=== PATIENT | male | born 1965 | race Caucasian/White ===

== ENCOUNTER → 2016-04-04 | Outpatient (CLI) | payer BC ==
[~2016-04-04] MED LIST: ACET-1256 PO; ATOR-24 PO; CLOP1TAB15 PO; FLM4 PO; GABA1CAP PO; MULT-506 PO; OPTIRAY 320 IV PRN; PSYL55.43; SIMV40TA2 PO; VTME100 PO; viagra PO
--- NOTE | 2016-04-04 07:59 | DIAGNOSTIC IMAGING REPORT ---
CT ANGIOGRAPHY OF THE CHEST WITH CONTRAST CT DOSE: 1642.90 mGy.cm CLINICAL HISTORY: Distal embolization with embolic disease of toes. TECHNIQUE: Helical axial images of the chest were obtained during arterial phase following intravenous injection 116 cc of Optiray 320 IV. Sagittal and coronal reconstructions were reviewed as well as maximal intensity projections on an independent 3-D workstation. Please note that the CTA of the abdomen and pelvis with lower extremity runoff will be reported separately. COMPARISON STUDY: None. FINDINGS: No enlarged axillary, mediastinal or hilar lymph nodes are present. The heart is mildly enlarged. There is no pericardial effusion. The caliber of the thoracic aorta is at the upper limits of normal. There is mild plaque of the aortic arch. No dissection is present. There is no aneurysmal dilatation. Central airways are patent. Mosaic attenuation is noted. Note is made of a 1 cm nodule within the anterior segment of the right upper lobe shown on image 125 of 1439. This nodule has slightly irregular margins. There may be associated air trapping. A 5 mm right upper lobe nodule is noted on image 74. Note is made of a 5 m right middle lobe nodule on image 161. No consolidation to suggest pneumonia is present. Linear opacities suggest atelectasis. Bony thorax is unremarkable. The abdomen and pelvis with runoff will be reported separately. IMPRESSION: 1. Mild atherosclerotic plaque of the aortic arch. No thoracic aortic aneurysm. No thoracic aortic dissection. 2. 1 cm right upper lobe nodule with slightly irregular margins. This nodule is indeterminate and a neoplasm cannot be excluded on this exam. A follow-up pulmonary consultation and PET/CT are recommended. 3. Several additional nodules which are low suspicion but indeterminate. 4. Mild cardiomegaly. 5. Mosaic attenuation within the lungs which may reflect air trapping. Electronically signed by: Jaxson Benton M.D. 04/04/2016 7:57 AM Dictated Date/Time: 04/04/2016 7:39 AM
--- NOTE | 2016-04-04 07:59 | DIAGNOSTIC IMAGING REPORT ---
CT ANGIO AA CHIRAG LE RUNOFF CT DOSE: CLINICAL HISTORY: Lower extremity arterial thrombosis. TECHNIQUE: CT angiography of the abdomen pelvis and both lower extremities were performed in a dynamic helical fashion during intravenous administration of 116 cc of Optiray 320. MIP imaging was performed. COMPARISON STUDY: CT scan of the abdomen pelvis dated 05/25/2011 FINDINGS: Imaged the lung bases reveal subtle groundglass attenuation with a mosaic distribution. This may indicate air trapping. There is a 6 mm hypervascular focus within the right lobe of the liver laterally. There is a 7 mm hypodensity within the left lobe anteriorly possibly representing a cyst. No splenic masses are visualized in this arterial phase study. No peripancreatic masses are visualized this arterial phase study. No adrenal masses are visualized. No renal masses are visualized this arterial phase study. There is mild infiltration the central mesentery with minimally prominent mesenteric lymph nodes. The appendix appears normal. There is no acute diverticulitis. There are no transition zones indicate bowel obstruction. There is no evidence of celiac or superior mesenteric artery stenosis. There is no evidence of renal artery stenosis.. There are 2 right renal arteries. The inferior mesenteric artery is patent. There is no evidence of abdominal aortic aneurysm. There are mild to moderate atheromatous changes within the abdominal aorta. On the left, there is a 50% diameter stenosis of the left common iliac artery. There is no evidence of hemodynamically significant stenosis of the left external iliac artery. There are mild atheromatous changes in the left common femoral artery. There are mild to moderate atheromatous changes within the distal superficial femoral artery with multifocal stenoses approaching 50%. There is a 40% diameter stenosis of the left popliteal artery. There is three-vessel runoff to the ankle. On the right, there is no evidence of hemodynamically significant stenosis within the right common or external iliac. There is mild atheromatous narrowing involving the right common femoral artery. There are mild multifocal stenoses involving the right superficial femoral artery. There is a 30% diameter stenosis involving the popliteal artery. There is three-vessel runoff to the level the ankle. IMPRESSION: 1. Mild to moderate atheromatous changes as described above. There are no focal stenoses exceeding 50%. There is three-vessel runoff bilaterally 2. No evidence of superior mesenteric, celiac, or renal artery stenosis 3. 6 mm hypervascular focus in the right lobe of the liver laterally, and 7 mm hypodensity within the left lobe of the liver anteriorly 4. Mild infiltration of the central mesentery with associated minimally prominent lymph nodes Electronically signed by: Gray Castro M.D. 04/04/2016 7:57 AM Dictated Date/Time: 04/04/2016 7:42 AM
== END | disposition home or self-care (01) ==
LOC: C.CTS 06:38
PROVIDERS: ATTEND Surgery Vascular Surgery
DX: I74.3 Embolism and thrombosis of arteries of the lower extremities (principal); R91.1 Solitary pulmonary nodule; R91.8 Other nonspecific abnormal finding of lung field

== ENCOUNTER → 2016-04-18 | Day surgery (SDC) | payer BC, OTHER ==
[~2016-04-18] VITALS: Ht 170.2 cm; Wt 74.5 kg
[2016-04-18] VITALS (9 sets, daily range): BP systolic 99–127; BP diastolic 71–87; PULSE 74–81; TEMP 36.5–36.7; O2SAT 92–95; Ht 170.2 cm; Wt 74.5 kg
[~2016-04-18] MED LIST changes: +CEFAZOLIN 1000MG/55 ML D5W 55 ML IV SCH; +CLOPIDOGREL BISULFATE 300 MG TAB PO STA; +FENTANYL CITRATE INJ 50 MCG/1 ML 2 ML VIAL IV ONE; +FENTANYL CITRATE INJ 50 MCG/1 ML 2 ML VIAL ONE; +HEPARIN SOD (PORCINE) 1000 UNIT/ML 10 ML VIAL IV ONE; +HEPARIN SOD (PORCINE) 1000 UNIT/ML 10 ML VIAL ONE; +IODIXANOL (VISIPAQUE) 270 MG/ML 150ML XX ONE; +LIDOCAINE HCL 1% 20 ML VIAL INFIL ONE; +MIDAZOLAM HCL 1 MG/ML 2ML VIAL IV ONE; +MIDAZOLAM HCL 1 MG/ML 2ML VIAL ONE; +NSS 1000ML IV SCH; +ONDANSETRON INJ 2 MG/ML 2 ML VIAL IV PRN; -OPTIRAY 320 IV PRN; +OXYCODONE/ACETAMINOPHEN 5-325 TAB PO PRN; +PATIENT'S HEIGHT AND/OR WEIGHT NEEDED SCH
--- NOTE | 2016-04-18 06:46 | History and Physical ---
History & Physical CC: Bilateral embolization to feet HPI: Mr. Worthy states that his 4th toe became purple and increasingly painful approximately 3months ago. He states that prior to that, he had been having some burning sensation in his bilateral toes, but that after undergoing a massage therapy that burning sensation went away in all the toes except this fourth one and then that toe became discolored. He states that it waxes and wanes between a deep purple and reddish color. He states that the skin is beginning to peel off in the dorsal aspect. He states id it is tender to touch and if under hot water in the shower. The patient does state having some discomfort in his bilateral calves when ambulating. He states that it comes on after walking a considerable distance though and that it is not severe enough to cause him to stop ambulation. He denies any rest pain or nonhealing wounds or ulcers. Mr. Worthy had a CTA which showed a mild amount of plaque in the distal aorta , but he does have a bilateral iliac artery stenoses at their origins. The left side is at least 50-60% with what appears to be a soft plaque. The right side has an angle at the origin, so it makes it difficult to evaluate the stenosis, but I believe it is probably over 70%. There is poststenotic dilatation of the common iliac artery on that side He denies other complaints at this time including headaches, fevers, chills, chest pain, shortness of breath, abdominal pain, nausea, vomiting, diarrhea, constipation, dysuria, hematuria or other complaints. His allergies include no known allergies. Home medications are reconciled in the chart and include Aleve, multivitamin, simvastatin, tamsulosin and Viagra. The patient's past medical history is positive for depression, hypercholesterolemia, erectile dysfunction, osteopenia and a history of tobacco use. The patient's surgical history is positive for colonoscopy, shave biopsy of skin , surgery on his left middle finger and dental extractions. His family history is essentially negative per patient. His social history is positive for tobacco use. The patient states that he smokes at least 1/2 to 1 pack of cigarettes per day. He denies any alcohol or drug use. His review of systems is negative for fatigue, fevers, sweats, weight loss, exercise intolerance, abnormal moles, vision changes or photophobia, ear pain, sinus problems or sore throat, cough, shortness of breath, hemoptysis or wheezing, chest pain, palpitations, edema or syncope, abdominal pain, nausea, vomiting, diarrhea, constipation, muscle weakness, headaches, dizziness, numbness or seizures. PHYSICAL EXAMINATION: His vital signs today were as follows, a blood pressure of 110/72 in the right arm, 106/72 in the left; heart rate of 89; oxygenation 96 % on room air. Constitutional, in general, the patient is a healthy-appearing for age, well-nourished, well-developed middle-aged male in no acute distress. He ambulates without assistance and is active, alert and oriented x4 with normal recent and remote memory. His head is normocephalic and atraumatic. His eyes are EOMI. His ENMT exam demonstrates no hearing loss, rhinorrhea or pharyngeal erythema. His neck is supple, nontender with midline trachea without masses or crepitus. Lung exam demonstrates no dyspnea. They are decreased somewhat throughout, but are clear bilaterally. His cardiovascular exam demonstrates a nondisplaced apical impulse with a regular rate and rhythm without murmurs, lifts, heaves, thrills or gallops. His peripheral pulses are full and equal in all extremities unless otherwise noted, specifically they are normal in his carotid, brachial and radial pulses. The patient's left femoral is +2. His right femoral is +1. His left lower extremity DP and PT pulses are +2. His right lower extremity distal pulses are +2. He has brisk capillary refill to all toes in his right foot. The patient's left foot demonstrate brisk capillary refill to all toes except his fourth toe which has delayed capillary refill of 8 seconds. The patient demonstrates no bruits in his carotid, abdominal or femoral area. His abdomen is soft and nontender with normoactive bowel sounds in all 4 quadrants without guarding or rebound. There is no flank or CVA tenderness and I am unable to appreciate any pulsatile mass. His musculoskeletal exam demonstrates normal tone and strength for age. His bilateral upper extremities demonstrate no cyanosis, edema, clubbing, varicosities or ulcers. The patient's left fourth toe demonstrates violaceous/ red discoloration consistent with ischemia. There is some mild topical exfoliative dermatitis. The toe is tender to palpation. There are no open areas and there is no odor. There is worsening of the fourth toe and discoloration of the third through fifth toes of the left foot, also new discoloration of the right great and fifth toe. The right fifth toe and left fourth and fifth toes are discolored. There is good perfusion around the escharred area. The patient's right lower extremity demonstrates no cyanosis, edema, clubbing, varicosities or ulcers. Neurologically, the patient has grossly intact cranial nerves and grossly intact sensation. 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 Plan : Patient is admitted for arteriography and iliac stenting. I have discussed the risks options and benefits of the procedure with the patient. The patient understands the risks options and benefits and agrees to the procedure.
[2016-04-18 07:55] LABS: CREATININE 0.83 mg/dl (0.60-1.40)
--- NOTE | 2016-04-18 09:18 | Procedure Note ---
Pre-Mod Sedation Assessment General Date of Moderate Sedation: Apr 18, 2016. Vital Signs: Vital Signs Past 12 Hours Date Time Temp Pulse Resp B/P Pulse Ox O2 Delivery O2 Flow Rate FiO2 04/18/16 07:06 36.7 81 16 127/85 94 Room Air Pre-Sedation Airway Assessment Oral Cavity: WNL Smoking Status: Former Smoker Mallampati Classification: Class I ASA Classification: Class II Notes The planned sedation has been discussed with the patient and consent obtained. I have identified the patient, determined the appropriateness of sedation and have assessed the patient immediately prior to the procedure. All medicine(s) and interventions are by my order.
--- NOTE | 2016-04-18 09:18 | History & Physical Bridge Note ---
H&P Re-Evaluation Bridge Note: I have examined the patient, reviewed the History & Physical and in the interval since the performance of the History & Physical I have noted the following changes of clinical significance: No changes noted
--- NOTE | 2016-04-18 10:27 | Procedure Note ---
Post-Moderate Sedation Plan General Date of Moderate Sedation Apr 18, 2016. Vital Signs: Vital Signs Past 12 Hours Date Time Temp Pulse Resp B/P Pulse Ox O2 Delivery O2 Flow Rate FiO2 04/18/16 07:06 36.7 81 16 127/85 94 Room Air Review - Discharge Plan Post Moderate Sedation Plan: On clinical assessment, the patient appears to have tolerated the conscious sedation without complications. Patient is recovering as anticipated. Patient will continue to be monitored by nursing and may be discharged when conscious sedation discharge criteria are met.
--- NOTE | 2016-04-18 10:28 | [facility] Post Operative Brief Note ---
Immediate Operative Summary Operative Date Apr 18, 2016. Pre-Operative Diagnosis Embolic disease of the left fourth toe Post-Operative Diagnosis Same Procedure(s) Performed Bilateral Common Iliac Stenting Percutaneous Transluminal Angioplasty of Bilateral Iliac Arteries Mechanical Closure of Bilateral Femoral Arteries Moderate Conscious Sedation ([id number]) Surgeon Jm Nurse Aide Surgeon(s) None Estimated Blood Loss 10 Findings no residual stenosis Specimens None Anesthesia Local with moderate conscious sedation Complication(s) None Disposition
--- NOTE | 2016-04-18 10:30 | Discharge Instructions ---
Discharge Instructions Visit Reason for Visit: Bilateral Iliac Stenosis Discharge Discharge Diagnosis / Problem: Bilateral lower extremity embolization with bilateral common iliac plaque Discharge Goals Goal(s): Therapeutic intervention Activity Recommendations Activity Limitations: per Instructions/Follow-up section Anesthesia . Post Anesthesia Instructions: If you have had General Anesthesia or IV Sedation: * Do not drive today. * Resume driving when surgeon permits. * Do not make important decisions or sign legal documents today. * Call surgeon for: 1. Temperature elevations greater than 101 degrees F. 2. Uncontrollable pain. 3. Excessive bleeding. 4. Persistent nausea and vomiting. 5. Medication intolerance (nausea, vomiting or rash). * For nausea and vomiting use only clear liquids such as: tea, soda, bouillon until nausea subsides, then gradually increase diet as tolerated. * If you have any concerns or questions, call your surgeon's office. If physician is unavailable and it is an emergency, call 911 or go to the nearest emergency room. . Instructions / Follow-Up Instructions / Follow-Up Call [phone] to schedule a follow up appointment if one not already scheduled. SPECIAL CARE INSTRUCTIONS: Medications: * Continue to take your medications as directed. If you have been given a prescription for Plavix, please fill it immediately and take as directed. Incision Care: * Your puncture site may have some bruising and minor swelling for about one week. * You will have a small dressing covering your puncture site. You may remove the dressing after 24 hours and shower. You may let the warm soapy water run over it, but be sure to dry the puncture site well and keep it dry. * DO NOT IMMERSE THE INCISION IN A TUB/POOL/etc. UNTIL HEALED. * Puncture sites should be kept covered with a band-aid until it begins to heal. Restrictions: * Depending on whether you leg or arm was punctured to access the arteries, you will be required to lay flat, hold your arm still, or both, for about 4 hours after the procedure to prevent bleeding. * Limit your activity for the first 48 hours. You may walk and go up and down steps. Avoid excessive bending or movement at the puncture site. Possible Complications: * Excessive Swelling - after blood flow is improved you may notice increased swelling in the lower legs. This is a normal response. This usually depends on the amount of blockages in the leg, how long they have been there prior to your procedure and how much blood flow was restored. Elevating your legs will help to improve this. Please notify our office ([phone] ) if the swelling does not go away after lying in bed overnight. * Infection/Drainage/Bleeding - Drainage or bleeding from the puncture site should be minimal. If you have excessive bleeding or drainage, call our office ([phone]) right away. * Pain - You may experience some mild pain or soreness at your puncture site. If your pain does not improve, please contact our office ([phone]). Call your doctor and seek emergent treatment if you develop: * Temperature above 101 degrees * Any fever or chills * Any redness or purulent drainage from the puncture site * Any new dusky/blue colored toes or feet with coolness or sharp or aching pain. SKIN IRRITATION: * You may experience some redness and/or swelling in the area where radiation was administered. If any skin irritation occurs, please contact your family physician. FOLLOW UP VISIT: Keep any scheduled doctor appointments. Diet Recommendations Recommended Home Diet: resume previous diet Procedures Procedures Performed: Bilateral Common Iliac Stenting Percutaneous Transluminal Angioplasty of Bilateral Iliac Arteries Mechanical Closure of Bilateral Femoral Arteries Moderate Conscious Sedation ([id number]) Pending Studies Studies pending at discharge: no Medical Emergencies . Who to Call and When: Medical Emergencies: If at any time you feel your situation is an emergency, please call 911 immediately. . Non-Emergent Contact Non-Emergency issues call your: Surgeon . . "Provider Documentation" section prepared by Ahmet Oneal.
--- NOTE | 2016-04-18 11:11 | DIAGNOSTIC IMAGING REPORT ---
DATE OF PROCEDURE: 04/18/2016 PREOPERATIVE DIAGNOSIS: Bilateral iliac artery stenosis with ulceration, bilateral lower extremity embolization. POSTOPERATIVE DIAGNOSIS: Same. PROCEDURE: 1. Bilateral common iliac artery stenting. 2. Bilateral closure of the femoral arteries. 3. Moderate conscious sedation, 49 minutes. SURGEON: Dr. Oneal. ANESTHETIC: Local with moderate conscious sedation. PROCEDURE INDICATIONS: The patient is a 50-year-old gentleman who embolized his left foot and subsequent to that embolized to his right foot. We did do a CTA which showed irregularity of the left common iliac artery and the significant narrowing with poststenotic dilatation and irregular plaque of the right common iliac artery. Bilateral stenting was recommended. The patient understood the risks, options and benefits and agreed to go ahead with this procedure. The patient was taken to the angiogram suite and placed in supine position. After the groins were prepped and draped in a sterile manner, local anesthetic was administered. A percutaneous puncture was made of the right common femoral artery. A 5-Georgian sheath was inserted. An 0.035 wire was then passed up through the iliac into the aorta. Pigtail was inserted over the wire. An aortogram was performed which showed severe narrowing of the right common iliac artery origin with poststenotic dilatation, significant irregularity of the proximal right common iliac artery and good runoff to the external iliacs down to the femorals. Puncture on this side was anterior in the common femoral artery. It was decided to stent both arteries. Measurements were obtained. We would have use a 16 x 40 stent on the right, which would be a Wallstent and an iCAST of 9 x 38 on the left. I chose to put the iCAST on the left due to the amount of irregularity of the plaque. The left groin was then anesthetized and the common femoral artery punctured. The 7-Georgian sheath was inserted. The wire was then passed up into the abdominal aorta. The right side sheath was then pulled. Perclose device was used to preclose the right femoral artery, and an 11-Georgian sheath was inserted. The 16 x 40 Wallstent was then inserted. It was passed up to the distal aorta. This was done on the right side. A 9 x 38 iCAST passed up the left. We started to deploy the Wallstent first. I wanted to deploy the iCAST with the balloon in the Wallstent. After we deployed the Wallstent on the left, it did slip down through the stenosis. We then placed an 18 x 40 balloon slightly higher into the aorta. This was then deployed. It sat nicely in the distal aorta and then that slipped down. A 14 balloon was then inserted into the Wallstents. The 9 x 38 iCAST was then opened. Both balloons were inflated simultaneously to avoid crimping the other stent. Once this was done, the 14 balloon was pulled down into the common iliac artery distally, and the distal end was ballooned. Both balloons were then removed. The pigtail was then reinserted. Completion angio done at that time showed the iliacs to be widely patent. Irregular areas are both covered, especially on the left side. At that point the left sheath was pulled over a wire. The Star closure device was used to close the puncture in the left groin. This was done without difficulty. Hemostasis was noted. On the right side, the sheath was pulled over a wire. Perclose device was then tied down. No bleeding was noted. The wire was pulled and the Perclose was cinched down the rest of the way. Adequate hemostasis was noted at both groins. The patient left the angio suite in good condition and tolerated the procedure well.
== END | disposition home or self-care (01) ==
LOC: C.ACU 06:34
PROVIDERS: ATTEND Surgery Vascular Surgery
DX: I70.239 Atherosclerosis of native arteries of right leg with ulceration of unspecified site (principal); I70.248 Atherosclerosis of native arteries of left leg with ulceration of other part of lower leg; F17.210 Nicotine dependence, cigarettes, uncomplicated; E78.00 Pure hypercholesterolemia, unspecified; F32.9 Major depressive disorder, single episode, unspecified; M79.671 Pain in right foot; M79.672 Pain in left foot

== ENCOUNTER → 2016-04-21 | Outpatient (CLI) | payer BC ==
[~2016-04-21] MED LIST changes: -CEFAZOLIN 1000MG/55 ML D5W 55 ML IV SCH; -CLOPIDOGREL BISULFATE 300 MG TAB PO STA; -FENTANYL CITRATE INJ 50 MCG/1 ML 2 ML VIAL IV ONE; -FENTANYL CITRATE INJ 50 MCG/1 ML 2 ML VIAL ONE; -HEPARIN SOD (PORCINE) 1000 UNIT/ML 10 ML VIAL IV ONE; -HEPARIN SOD (PORCINE) 1000 UNIT/ML 10 ML VIAL ONE; -IODIXANOL (VISIPAQUE) 270 MG/ML 150ML XX ONE; -LIDOCAINE HCL 1% 20 ML VIAL INFIL ONE; -MIDAZOLAM HCL 1 MG/ML 2ML VIAL IV ONE; -MIDAZOLAM HCL 1 MG/ML 2ML VIAL ONE; -NSS 1000ML IV SCH; -ONDANSETRON INJ 2 MG/ML 2 ML VIAL IV PRN; -OXYCODONE/ACETAMINOPHEN 5-325 TAB PO PRN; -PATIENT'S HEIGHT AND/OR WEIGHT NEEDED SCH
[2016-04-21 14:38] LABS: BASO % 0.2 %; BASO ABS # 0.02 K/uL (0-0.2); COMPLETE YES; EOS % 3.1 %; HEMATOCRIT 45.9 % (42-52); IG% 0.2 %; LYMPH % 18.1 %; LYMPH ABS # 2.39 K/uL (1.2-3.4); MEAN CELL VOLUME 87.1 fL (80-100); MEAN CORPUSCULAR HEMOGLOBIN 29.6 pg (25-34); MEAN PLATELET VOLUME 10.2 fL (7.4-10.4); MONO % 8.6 %; NEUT % 69.8 %; PLATELET COUNT 596 K/uL (130-400); RED BLOOD COUNT 5.27 M/uL (4.7-6.1); WHITE BLOOD COUNT 13.24 K/uL (4.8-10.8)
[2016-04-21 15:01] LABS: BLOOD UREA NITROGEN 14 mg/dl (7-18); BUN/CREATININE RATIO 16.8 (10-20); CALCIUM 9.6 mg/dl (8.5-10.1); CARBON DIOXIDE 28 mmol/L (21-32); CHLORIDE 102 mmol/L (98-107); CREATININE 0.81 mg/dl (0.60-1.40); GLUCOSE 85 mg/dl (70-99); SODIUM 139 mmol/L (136-145)
== END | disposition home or self-care (01) ==
LOC: C.CPL 13:39
PROVIDERS: ATTEND Surgery
DX: R91.8 Other nonspecific abnormal finding of lung field (principal)

== ENCOUNTER → 2016-04-25 | Outpatient (CLI) | payer BC ==
--- NOTE | 2016-04-25 13:50 | DIAGNOSTIC IMAGING REPORT ---
CHEST CT WITHOUT CONTRAST CT DOSE: 357.46 mGycm HISTORY: PULMONARY NODULE, LAVONNE BRONCH -17 TECHNIQUE: Multiaxial CT images of the chest were performed without contrast. COMPARISON: Chest CTA 04/04/2016. FINDINGS: The central airways remain patent. No pleural effusions. No pneumothorax. Stable 3 mm groundglass nodule within the left lower lobe on image 140. Stable 5 mm nodule within the right upper lobe on image 91. 10 x 6 mm nodule within the anterior aspect of right upper lobe on image 150 is also not significant changed. Stable 4 mm nodule within the right middle lobe on image 196. No new pulmonary nodules identified. No suspicious lytic or blastic osseous lesions. The heart is normal in size. Mild calcified plaque within the aortic arch. Normal caliber thoracic aorta. Stable 8 mm hypodense lesion within the left hepatic lobe. This is too small to characterize but favors a cyst. The visualized spleen and adrenal glands are unremarkable. No mediastinal or hilar lymphadenopathy. The heart is normal in size. IMPRESSION: Stable bilateral pulmonary nodules as described above with the dominant right upper lobe nodule measuring 1 cm. Continued follow-up as detailed below. Please refer to below summary of Fleischner criteria recommendations for follow-up of incidental CT nodules (Janet Hwang, Guidelines for management of small pulmonary nodules detected on CT scans: A statement from the Fleischner Society, Radiology 237: [phone].) Low Risk Patient: Minimal or no smoking or other known risk factors for malignancy <=4 mm: No follow-up needed. >4-6 mm: Initial follow-up CT at 12 months; if unchanged, no further follow-up. >6-8 mm: Initial follow-up CT at 6-12 months then at 18-24 months if no change. >8 mm: Follow-up CT at \R\3, 9, 24 months, or PET and/or biopsy. High Risk Patient: History of smoking or other known risk factors <=4 mm: Follow-up at 12 months; if unchanged, no further follow-up. >4-6 mm: Initial follow-up CT at 6-12 months then at 18-24 months if no change. >6-8 mm: Initial follow-up CT at 3-6 months then at 9-12 and 24 months if no change. >8 mm: Same as low risk patient. Note: Nodule size measured as average of length and width. Ground glass or partly solid nodules may require longer follow-up to exclude indolent adenocarcinoma. Electronically signed by: Navdeep Mas M.D. 04/25/2016 1:49 PM Dictated Date/Time: 04/25/2016 1:34 PM
== END | disposition home or self-care (01) ==
LOC: C.CTS 13:08
PROVIDERS: ATTEND Surgery
DX: R91.1 Solitary pulmonary nodule (principal); R91.8 Other nonspecific abnormal finding of lung field

== ENCOUNTER → 2016-04-25 | Outpatient (CLI) | payer BC ==
--- NOTE | 2016-04-25 13:11 | DIAGNOSTIC IMAGING REPORT ---
PET/CT HISTORY: Pulmonary nodule PULMONARY NODULE TECHNIQUE: PET/CT was performed from the base of the skull through the pelvis following the intravenous administration of 15.4 mCi of F18-FDG. Non-contrast CT imaging was performed over the same range without breath-hold for attenuation correction of PET images and anatomic correlation, but not for primary interpretation as it is not of standard diagnostic quality. CT DOSE: COMPARISON: CT chest dated 04/04/2016 FINDINGS: HEAD AND NECK: There is no FDG-avid disease or significant lymphadenopathy in the imaged portions of the head and the neck. CHEST: There is no FDG-avid disease in the chest. There is no axillary, mediastinal, or hilar lymphadenopathy. There is no pleural or pericardial effusion. There is no air-space disease or suspicious lung nodule. 1 cm nodule right upper lobe is unchanged. It shows no evidence for abnormal activity characteristics. This diminishes the possibility of a pathologic nodular process. Interstitial changes produces described as chronic are unchanged. ABDOMEN/PELVIS: Below the diaphragm, tracer is distributed physiologically in the gastrointestinal and genitourinary tracts. There is no significant lymphadenopathy and no FDG-avid disease. MUSCULOSKELETAL: There is no FDG-avid or destructive bone lesion. IMPRESSION: 1. No evidence for abnormal metabolic activity of the right upper lobe parenchymal nodule. 2. Remainder the study is entirely normal. 3. This study diminishes the possibility of developing neoplastic process of the right upper lobe. 4. A [address] of the chest is suggested as follow-up. Electronically signed by: Mando Thompson M.D. 04/25/2016 1:10 PM Dictated Date/Time: 04/25/2016 1:03 PM
== END | disposition home or self-care (01) ==
LOC: C.PET 10:35
PROVIDERS: ATTEND Internal Medicine Pulmonary Disease
DX: R91.1 Solitary pulmonary nodule (principal)

== ENCOUNTER 2016-05-04 08:54 | Day surgery (SDC) | payer BC ==
[2016-04-25 10:14] VITALS: BMI 25.0
[~2016-05-04] VITALS: Ht 170.2 cm; Wt 75.0 kg
[~2016-05-04 08:54] MED LIST changes: -ATOR-24 PO; +CLINDAMYCIN PHOS 150 MG/ML 2 ML VIAL ONE; +DEXAMETHASONE SOD INJ 4 MG/ML VIAL ONE; +FENTANYL CITRATE INJ 50 MCG/1 ML 2 ML VIAL ONE; -GABA1CAP PO; +GLYCOPYRROLATE INJ 0.2 MG/ML VIAL ONE; +LACTATED RINGER'S 1000ML 1,000 ML IV SCH; +LIDOCAINE HCL 2% 2 ML VIAL (20MG/ML) ONE; +MIDAZOLAM HCL 1 MG/ML 2ML VIAL ONE; +NEOSTIGMINE METHYLSULFATE 5 MG/5 ML SYR ONE; +ONDANSETRON INJ 2 MG/ML 2 ML VIAL ONE; +PROPOFOL IV EMULSION 10 MG/ML 20 ML VIAL IV ONE; +ROCURONIUM BROMIDE 10 MG/ML 5 ML VIAL ONE; -viagra PO
[2016-05-04 09:10] VITALS: BP 113/81; PULSE 88; TEMP 36.6; O2SAT 94; Ht 170.2 cm; Wt 75.0 kg
--- NOTE | 2016-05-04 10:31 | Discharge Instructions ---
Discharge Instructions Visit Reason for Visit: Pulmonary Nodules Discharge Discharge Diagnosis / Problem: Pulmonary Nodules Discharge Goals Goal(s): Learn about illness Activity Recommendations Activity Limitations: resume your previous activity (in 24 hours) Anesthesia . Post Anesthesia Instructions: If you have had General Anesthesia or IV Sedation: * Do not drive today. * Resume driving when surgeon permits. * Do not make important decisions or sign legal documents today. * Call surgeon for: 1. Temperature elevations greater than 101 degrees F. 2. Uncontrollable pain. 3. Excessive bleeding. 4. Persistent nausea and vomiting. 5. Medication intolerance (nausea, vomiting or rash). * For nausea and vomiting use only clear liquids such as: tea, soda, bouillon until nausea subsides, then gradually increase diet as tolerated. * If you have any concerns or questions, call your surgeon's office. If physician is unavailable and it is an emergency, call 911 or go to the nearest emergency room. . Instructions / Follow-Up Instructions / Follow-Up 1. You may cough up some blood. Call physician if excessive amount noted. 2. Keep your scheduled appointment with Dr. Farias on May 17 @ 9:30. Diet Recommendations Recommended Home Diet: resume previous diet Pending Studies Studies pending at discharge: no Medical Emergencies . Who to Call and When: Medical Emergencies: If at any time you feel your situation is an emergency, please call 911 immediately. . Non-Emergent Contact Non-Emergency issues call your: Surgeon Call Non-Emergent contact if: you have a fever . . "Provider Documentation" section prepared by Bean Mayorga.
[2016-05-04] MEDS ORDERED: METOPROLOL TARTRATE 1 MG/ML VIAL ONE (10:37)
[2016-05-04] MEDS ORDERED: LARYING-O-JET KIT (LTA) EXT ONE ×2 (10:37)
[2016-05-04] MEDS ORDERED: ROCURONIUM BROMIDE 10 MG/ML 5 ML VIAL ONE (10:46)
[2016-05-04] MEDS ORDERED: EpHEDrine SULFATE 50MG/5ML SYR ONE (10:52)
--- NOTE | 2016-05-04 11:58 | DIAGNOSTIC IMAGING REPORT ---
CHEST 1 VIEW FRONTAL CLINICAL HISTORY: NAVIGATIONAL BRONCH TECHNIQUE: Image intensifier COMPARISON STUDY: None FINDINGS: Image intensifier for navigational bronchoscopy IMPRESSION: Navigational bronchoscopy Electronically signed by: Mando Thompson M.D. 05/04/2016 11:56 AM Dictated Date/Time: 05/04/2016 11:56 AM
[2016-05-04] MEDS ORDERED: ONDANSETRON INJ 2 MG/ML 2 ML VIAL IV PRN (12:15)
[2016-05-04] MEDS ORDERED: LABETALOL HCL IV 5 MG/ML 20ML IV PRN (12:15)
[2016-05-04] MEDS ORDERED: FLUMAZENIL 0.1 MG/1 ML 10 ML VIAL IV PRN (12:15)
[2016-05-04] MEDS ORDERED: PROMETHAZINE HCL INJ 12.5 MG in SODIUM CHLORIDE 0.9% 50ML 50 ML IV PRN (12:15)
[2016-05-04] MEDS ORDERED: ATROPINE SULFATE 0.1 MG/ML 5ML SYR IV PRN (12:15)
[2016-05-04] MEDS ORDERED: EpHEDrine SULFATE INJ 50 MG/ML AMP IV PRN (12:15)
[2016-05-04] MEDS ORDERED: NALOXONE HCL 0.4 MG/1 ML VIAL/CARP IV PRN (12:15)
--- NOTE | 2016-05-04 12:22 | DIAGNOSTIC IMAGING REPORT ---
CHEST ONE VIEW PORTABLE CLINICAL HISTORY: s/p FOB postoperative evaluation COMPARISON STUDY: No previous studies for comparison. FINDINGS: No evidence pneumothorax. Diaphragms are smooth. Lungs are grossly clear. IMPRESSION: No acute process on a postoperative basis. Electronically signed by: Mando Thompson M.D. 05/04/2016 12:21 PM Dictated Date/Time: 05/04/2016 12:21 PM
--- NOTE | 2016-05-04 12:37 | Anesthesiology Progress Note ---
Anesthesia Post Op Note Date & Time May 04, 2016 at 12:36 Vital Signs Pain Intensity: 0 Vital Signs Past 12 Hours Date Time Temp Pulse Resp B/P Pulse Ox O2 Delivery O2 Flow Rate FiO2 05/04/16 12:30 77 18 105/71 93 Nasal Cannula 2 05/04/16 12:20 74 18 113/74 98 Room Air 05/04/16 12:10 80 20 126/78 99 Mask 05/04/16 12:00 36.1 88 16 113/76 99 Mask 10 05/04/16 09:10 36.6 88 20 113/81 94 Room Air Notes Mental Status: alert / awake / arousable, participated in evaluation Pt Amnestic to Procedure: Yes Nausea / Vomiting: adequately controlled Pain: adequately controlled Airway Patency, RR, SpO2: stable & adequate BP & HR: stable & adequate Hydration State: stable & adequate Anesthetic Complications: no major complications apparent
[2016-05-04 12:49] VITALS: BP 123/74; PULSE 77; TEMP 36.5; O2SAT 98
[2016-05-04 13:20] VITALS: BP 105/72; PULSE 75; O2SAT 94
[2016-05-04 13:50] VITALS: BP 111/69; PULSE 79; TEMP 36.4; O2SAT 96
--- NOTE | 2016-05-04 16:47 | OPERATIVE REPORT ---
DATE OF OPERATION: 05/04/2016 PREOPERATIVE DIAGNOSIS: Right middle lobe mass. POSTOPERATIVE DIAGNOSIS: Same. PROCEDURE: 1. Endobronchial ultrasound with biopsy. 2. Navigational bronchoscopy with biopsy right middle lobe mass. SURGEON: Dr. Farias. FACILITY OPERATIONS MANAGER: Alexis Otto, respiratory therapy. ANESTHESIA: General anesthesia with endotracheal intubation. INDICATION FOR PROCEDURE AND FINDINGS: This is a very nice 50-year-old male, peripheral vascular disease, history of cigarette smoking who underwent a iliac angioplasty about 2 weeks ago due to problems with his lower extremity embolization. His claudication symptoms in his foot are much improved. However, on the CT scan he was found to have a mass in his right middle lobe. He actually had several small nodules. On evaluation I am really not concerned about any of these except this right middle lobe lesion. We had a long talk about this. I saw him in the office and he would like to proceed with a PET scan. There was very little uptake in this right middle lobe lesion; however, I was concerned about its appearance. After a long discussion, we elected to proceed with a biopsy. On 05/04/2016 I took the patient to the operating room and did an endobronchial ultrasound and biopsied several lymph node stations which we got lymphocytes back but no evidence of malignancy. I went after this mass and felt I was right in the middle of it. I did brushings, needle biopsies and forceps biopsies. He tolerated it well. PROCEDURE: The patient was brought to the operating room and placed in supine position. General anesthesia induced and endotracheal intubation was performed. After appropriate timeout had been called and prophylactic antibiotics had been given the endobronchial ultrasound scope was placed. I started off on the left side and biopsied level 10, level 4, level 7 and then came over and did the right level 10 and right level 4. There was no significant bleeding. I did several needle passes in each. I irrigated out the airway nicely. I then switched him over to a regular fiberoptic bronchoscope and inspected the airways closely and saw no endobronchial lesions. When I went down actually this mass was in the middle lobe. There had been some discussion about this being in the upper lobe, however when mapping this it could be seen that I had to go through the right middle lobe bronchus. It also did appear to be within the middle lobe on CT upon further evaluation. I was able to get right out to this nodule after multiple attempts. The radial ultrasound showed we were in the correct position. I then did multiple brushings, needle biopsies as well as forceps biopsies and touch prep. We got into very little in the way of any bleeding. This was irrigated dry. I did washings. We then slowly withdrew the navigational bronchoscopy probe and then the fiberoptic bronchoscope. He had no significant bleeding. I attest to the content of the Intraoperative Record and any orders documented therein. Any exceptio ns are noted below.
== END 2016-05-04 13:55 | disposition home or self-care (01) ==
LOC: C.ACU 08:54
PROVIDERS: ATTEND Surgery
DX: R91.1 Solitary pulmonary nodule (principal); I73.9 Peripheral vascular disease, unspecified; N40.1 Benign prostatic hyperplasia with lower urinary tract symptoms; N13.8 Other obstructive and reflux uropathy; E78.00 Pure hypercholesterolemia, unspecified; Z87.891 Personal history of nicotine dependence; Z98.62 Peripheral vascular angioplasty status; Z80.1 Family history of malignant neoplasm of trachea, bronchus and lung

== ENCOUNTER → 2016-08-08 | Outpatient (CLI) | payer BC ==
[~2016-08-08] MED LIST changes: -CLINDAMYCIN PHOS 150 MG/ML 2 ML VIAL ONE; -DEXAMETHASONE SOD INJ 4 MG/ML VIAL ONE; -FENTANYL CITRATE INJ 50 MCG/1 ML 2 ML VIAL ONE; -GLYCOPYRROLATE INJ 0.2 MG/ML VIAL ONE; -LACTATED RINGER'S 1000ML 1,000 ML IV SCH; -LIDOCAINE HCL 2% 2 ML VIAL (20MG/ML) ONE; -MIDAZOLAM HCL 1 MG/ML 2ML VIAL ONE; -NEOSTIGMINE METHYLSULFATE 5 MG/5 ML SYR ONE; -ONDANSETRON INJ 2 MG/ML 2 ML VIAL ONE; -PROPOFOL IV EMULSION 10 MG/ML 20 ML VIAL IV ONE; -ROCURONIUM BROMIDE 10 MG/ML 5 ML VIAL ONE
--- NOTE | 2016-08-08 12:30 | DIAGNOSTIC IMAGING REPORT ---
CHEST CT WITHOUT CONTRAST CT DOSE: 289.29 mGy.cm HISTORY: Lung nodule R91.1 Pulmonary nodule TECHNIQUE: Multiaxial CT images of the chest were performed without contrast. COMPARISON: 04/25/2016 FINDINGS: ] Nodularity of both hemithoraces remain stable to slightly improved. No evidence for new interval or progressive nodule. All nodules previously described again are stable to resolved. No significant mediastinal or hilar adenopathy. Axillary regions are unremarkable. IMPRESSION: Stable to slightly improved exam. Unchanging to slightly improved minimal pulmonary micronodular change. Follow-up per Fleischner criteria. Please refer to below summary of Fleischner criteria recommendations for follow-up of incidental CT nodules (Janet Hwang, Guidelines for management of small pulmonary nodules detected on CT scans: A statement from the Fleischner Society, Radiology 237: [phone].) SOLID NODULES Solitary nodule size: <6 mm * low risk patients: no follow-up needed * high risk patients: optional CT at 12 months Solitary nodule size: 6-8 mm * low risk patients: follow-up at 6-12 months, then consider further follow-up at 18-24 months * high risk patients: initial follow-up CT at 6-12 months and then at 18-24 months if no change Solitary nodule size: >8 mm * either low or high risk patients - consider follow-up CT at 3 months, and/or CT-PET, and/or biopsy Multiple nodules size: <6 mm * low risk patients: no routine follow-up * high risk patients: optional CT at 12 months Multiple nodules size: 6-8 mm * low risk patients: follow-up at 3-6 months, then consider further follow-up at 18-24 months * high risk patients: follow-up at 3-6 months, then at 18-24 months if no change Multiple nodules size: >8 mm * low risk patients: follow-up at 3-6 months, then consider further follow-up at 18-24 months * high risk patients: follow-up at 3-6 months, then at 18-24 months if no change Note: newly detected indeterminate nodule in persons 35 years of age or older. * Low risk patients: minimal or absent history of smoking and/or other known risk factors * high risk patients: history of smoking or of other known risk factors (e.g. first degree relative with lung cancer, or exposure to asbestos, radon, uranium) * if a nodule up to 8 mm is partly solid or is ground glass further follow-up is required after 24 months to exclude possible slow growing adenocarcinoma (MICHELLE) SUBSOIL NODULES Solitary pure ground-glass nodule * nodule size <6 mm - no CT follow-up required * nodule size >=6 mm - follow-up CT at 6-12 months, then every 2 years until 5 years Solitary part-solid nodule * nodule size <6 mm - no CT follow-up required * nodule size >=6 mm - follow-up CT at 3-6 months. If unchanged, and solid component remains <6 mm, then annual follow-up for 5 years Multiple subsolid nodules * nodule size <6 mm - follow-up CT at 3-6 months, consider further follow-up at 2 and 4 years if stable * nodule size >=6 mm - follow-up CT at 3-6 months, subsequent management based on the most suspicious nodule(s) Electronically signed by: Mando Thompson M.D. 08/08/2016 12:29 PM Dictated Date/Time: 08/08/2016 12:22 PM
== END | disposition home or self-care (01) ==
LOC: C.CTS 12:10
PROVIDERS: ATTEND Surgery
DX: R91.1 Solitary pulmonary nodule (principal)

== ENCOUNTER → 2016-12-05 | Outpatient (CLI) | payer BC ==
--- NOTE | 2016-12-05 09:52 | DIAGNOSTIC IMAGING REPORT ---
(CHEST) THORAX WITHOUT CLINICAL HISTORY: 51 years-old Male presenting with pulmonary nodule follow-up compared to 08/08/2016. TECHNIQUE: Multidetector CT imaging of the chest was performed without the use of intravenous contrast. IV contrast: None. A dose lowering technique was used consistent with the principles of ALARA (as low as reasonably achievable). COMPARISON: 08/08/2016. CT DOSE (mGy.cm): The estimated cumulative dose is 255.15 mGy.cm. FINDINGS: Measurement Technician topogram: Unremarkable. On soft tissue windows, normal thyroid and thoracic inlet. No axillary, supraclavicular, hilar, or mediastinal lymphadenopathy. Atherosclerosis of aortic arch. Normal heart size. Aortic valve and coronary artery calcification. No pericardial or pleural effusion. Multiple hypodensities again noted in the liver, incompletely characterized but likely hepatic cysts or hamartomas. These are unchanged from most recent prior. On lung windows, 3 mm groundglass nodule at the right apex (series 4 image 55), unchanged. Fissural triangular solid 4 mm nodule along the paramediastinal right upper lobe (series 4 image 90) disease, unchanged. Fissural 3 mm solid pulmonary in the right upper lobe along the minor fissure (series 4 image 175), unchanged. Subpleural solid 3 mm nodule in the right lower lobe (series 4 image 171), unchanged. Solid 2 mm nodules in the left upper lobe (series 4 images 92 and 118), unchanged. Subpleural solid 3 mm nodule in the left lower lobe (series 4 image 172), unchanged. 2 mm groundglass nodule at the superior segment of the left lower lobe (series 4 image 191) disease, unchanged. Additional 2 mm groundglass nodule at the superior segment of the left lower lobe (series 4 image 155), unchanged. No convincing evidence of new nodule. Airways patent. On bone windows, normal osseous structures. IMPRESSION: 1. Multiple bilateral solid and subsolid pulmonary nodules measuring up to 3 mm, unchanged from prior. No new nodule. Follow-up per [employer] Society 2017 recommendations below. Please refer to below summary of Fleischner Society 2017 recommendations for follow-up of incidental CT nodules (H Jaiden et al. Guidelines for management of incidental pulmonary nodules detected on CT images: From the Fleischner Society 2017. Radiology 2017; 284: 228-243.) SOLID NODULES Single nodule; size <6 mm * Low risk patients: No routine follow-up * High risk patients: Optional CT at 12 months Single nodule; size 6-8 mm * Low risk patients: CT at 6-12 months, then consider CT at 18-24 months * High risk patients: CT at 6-12 months, then at 18-24 months Single nodule; size >8 mm * Either low or high risk patients: Considered CT at 3 months, PET/CT, or tissue sampling Multiple nodules; size <6 mm * Low risk patients: No routine follow up * High risk patients: Optional CT at 12 months Multiple nodules; size 6-8 mm * Low risk patients: CT at 3-6 months, then consider CT at 18-24 months * High risk patients: CT at 3-6 months, then at 18-24 months Multiple nodules; size >8 mm * Low risk patients: CT at 3-6 months, then consider at 18-24 months * High risk patients: CT at 3-6 months, then at 18-24 months Note: These guidelines apply to incidental nodules. These guidelines did not apply to patients younger than 35 years, immunocompromised patients, or patients with cancer. * Low risk patients: Minimal or absent history of smoking and/or other known risk factors * High risk patients: History of smoking, exposure to other carcinogens, emphysema, fibrosis, upper lobe location, family history of lung cancer, etc. * If a nodule up to 8 mm is partly solid or is ground glass further follow-up is required after 24 months to exclude possible slow growing adenocarcinoma SUBSOLID NODULES Single ground-glass nodule * Nodule size < 6 mm: No routine follow-up * Nodule size > or = 6 mm: CT at 6-12 months to confirm persistence, then CT every 2 years until 5 years Single part-solid nodule * Nodule size < 6 mm: No routine follow-up * Nodules size > or = 6 mm: CT at 3-6 months to confirm persistence. If unchanged and solid component remains < 6 mm, annual CT should be performed for 5 years Multiple nodules * Nodule size < 6 mm: CT at 3-6 months. If stable, consider CT at 2 and 4 years. * Nodules size > or = 6 mm: CT at 3-6 months. Subsequent management based on the most suspicious nodule(s) Electronically signed by: Travis Pope M.D. 12/05/2016 9:51 AM Dictated Date/Time: 12/05/2016 9:42 AM
== END | disposition home or self-care (01) ==
LOC: C.CTS 09:23
PROVIDERS: ATTEND Surgery
DX: R91.1 Solitary pulmonary nodule (principal); R91.8 Other nonspecific abnormal finding of lung field